=== PATIENT | male | born 1970 | race Caucasian/White ===

== ENCOUNTER 2018-06-22 11:38 | Emergency (ER) | payer SELFPAY ==
[~2018-06-22] VITALS: Ht 177.8 cm; Wt 80.4 kg
[~2018-06-22 11:38] MED LIST: AUGMENTIN875 MG PO; no home
[2018-06-22 12:18] LABS: HEMOGLOBIN 17.8 G/DL (12.5-16.6); MCH 32.8 PG (29.0-34.0); MCHC 37.1 G/DL (30.0-36.0); MCV 88.4 FL (86-99); PLATELET COUNT 340 K/uL (156-360); RBC DIS.WIDTH-CV 11.4 % (11.8-14.6); RBC DIS.WIDTH-SD 36.9 % (39-53); RED BLOOD COUNT 5.43 M/uL (4.00-5.50); WHITE BLOOD COUNT 7.5 K/uL (4.1-10.2)
[2018-06-22 12:26] LABS: CHLORIDE 94 mEq/L (99-109); POTASSIUM 4.1 mEq/L (3.7-5.4); SODIUM 130 mEq/L (136-147)
[2018-06-22 12:28] LABS: GLUCOSE 129 mg/dL (70-99)
[2018-06-22 12:31] LABS: SERUM ETHYL ALCOHOL 50 mg/dL
[2018-06-22 12:32] LABS: CREATININE 0.7 mg/dL (0.6-1.3); GFR ESTIMATE (CALCULATED) > 59 mL/min/ (58.99-99999)
[2018-06-22 12:33] LABS: UREA NITROGEN (BUN) 7 mg/dL (9-23)
[2018-06-22 12:35] LABS: LIPASE 33 U/L (1.0-51.0)
[2018-06-22 12:36] LABS: TROP-I INTERPRETATION NEGATIVE; TROPONIN-I < 0.01 ng/mL (0.0-0.30)
[2018-06-22 14:06] VITALS: BP 182/100
== END 2018-06-22 14:19 | disposition left against medical advice (07) ==
LOC: EME → EDBD 11:38 → EME 11:38
PROVIDERS: Emergency Medicine
DX: R07.9 Chest pain, unspecified (principal); R94.31 Abnormal electrocardiogram [ECG] [EKG]; F17.200 Nicotine dependence, unspecified, uncomplicated
CPT/HCPCS: 71046; 80048; 83690; 84484; 85027; 93005; 99281; 99284; G0480; J2060; J7040